=== PATIENT | male | born 1955 | race Caucasian/White ===

== ENCOUNTER 2017-07-28 06:52 | Day surgery (SDC) | payer BC, OTHER ==
[~2017-07-28 06:52] MED LIST: Lactated Ringers 1,000 ML IV SCH; Sodium Chloride 0.9% 10 ML Syringe FLUSH PRN
[2017-07-28] MEDS ORDERED: Midazolam 1 MG/ML 2 ML SDV IV ONE (08:15)
[2017-07-28] MEDS ORDERED: Lidocaine 2% 100 MG/5 ML Syringe IVPUSH ONE (08:15)
[2017-07-28] MEDS ORDERED: Propofol 200 MG/20 ML SDV IV ONE (08:15)
--- NOTE | 2017-07-28 08:18 | PCM.HPR ---
H & P Addendum review - H & P Addendum Review Date of Original H & P: 07/09/17 Date Reviewed: 07/28/17 Time Reviewed: 08:00 Patient was Examined: No Changes
--- NOTE | 2017-07-28 08:46 | PCM.OPNOTE ---
- General Post-Op/Procedure Note Date of Surgery/Procedure: 07/28/17 Operative Procedure(s): Colonoscopy with Polypectomy Findings: Sig Tics Cecal polyp Pre Op Diagnosis: Hx Colon Polyps. Tics Post-Op Diagnosis: Same Anesthesia Technique: MAC Primary Surgeon: Michael Magallon Pathology: polyp EBL in mLs: 0 Complications: None Condition: Good
--- NOTE | 2017-07-28 17:49 | OR ---
DATE OF OPERATION: 07/28/2017 SURGEON: Michael Magallon MD PREOPERATIVE DIAGNOSES: 1. History of colon polyps. 2. Diverticulosis. POSTOPERATIVE DIAGNOSES: 1. Cecal polyp. 2. Sigmoid diverticulosis. PROCEDURE PERFORMED: Colonoscopy with polypectomy. ANESTHESIA: IV sedation. DESCRIPTION OF PROCEDURE: The patient was brought to the procedure room, where he was placed on his left side and IV sedation administered. Digital rectal exam was performed, which was normal. The colonoscope was inserted and advanced to the level of the cecum without difficulty. Cecal position was confirmed by identifying the appendiceal lumen and ileocecal valve. Prep was good and surfaces were well visualized. In the cecum, was a 6 mm sessile polyp, removed with the hot biopsy forceps. The remaining ascending, transverse, and descending colon were normal. The sigmoid colon had multiple diverticula present. Rectum was normal and retroflexion was normal. Air was removed and the scope withdrawn. The patient tolerated the procedure well and returned to recovery in stable condition. The patient will be contacted with the pathology report when it returns. If the polyp is adenomatous, he should consider repeat colonoscopy again in 3 years. If the polyp is hyperplastic, he can wait 5 years until his next colon screening or until his next colonoscopy. /[id number] TRUONG/STEPHANIE
== END 2017-07-28 10:05 | disposition home or self-care (01) ==
LOC: FB.SDS 06:52
PROVIDERS: ATTEND Surgery
DX: Z12.11 Encounter for screening for malignant neoplasm of colon (principal); K57.30 Diverticulosis of large intestine without perforation or abscess without bleeding; F41.1 Generalized anxiety disorder; F33.2 Major depressive disorder, recurrent severe without psychotic features; E78.2 Mixed hyperlipidemia; J30.2 Other seasonal allergic rhinitis; Z86.010 Personal history of colon polyps; Z79.899 Other long term (current) drug therapy; Z72.0 Tobacco use
CPT/HCPCS: 45384; 88305; J2250; J2704; J7120

== ENCOUNTER → 2019-05-26 | Outpatient (CLI) | payer MEDICARE, BC | LOC: FB.MH 08:00 | PROVIDERS: ATTEND Psychiatry & Neurology Psychiatry | DX: F33.9 Major depressive disorder, recurrent, unspecified (principal); F41.1 Generalized anxiety disorder | CPT/HCPCS: 99213 ==

== ENCOUNTER 2021-08-28 06:48 | Day surgery (SDC) | payer MEDICARE, BC ==
[~2021-08-28 06:48] MED LIST changes: -Lactated Ringers 1,000 ML IV SCH
[2021-08-28] MEDS ORDERED: Ketamine 500 mg/10 ML MDV IV ONE (06:49)
[2021-08-28] MEDS ORDERED: Propofol 200 MG/20 ML SDV IV ONE (06:49)
[2021-08-28] MEDS: Lactated Ringers 1,000 ML IV SCH (07:55)
[2021-08-28] MEDS ORDERED: PAROXETINE HCL 37.5 MG PO SCH (09:00)
[2021-08-28] MEDS ORDERED: amLODIPine 2.5 MG Tab PO SCH (09:00)
[2021-08-28] MEDS ORDERED: Non-Formulary Medication 1 Each (Rosuvastatin [Crestor] 5 MG Tablet) PO SCH (09:00)
[2021-08-28 10:21] VITALS: BP 117/75; PULSE 66
== END 2021-08-28 09:55 | disposition home or self-care (01) ==
LOC: FB.SDS 06:48
PROVIDERS: ATTEND Surgery
DX: Z12.11 Encounter for screening for malignant neoplasm of colon (principal); K57.30 Diverticulosis of large intestine without perforation or abscess without bleeding; E78.00 Pure hypercholesterolemia, unspecified; I10 Essential (primary) hypertension; E66.9 Obesity, unspecified; F17.200 Nicotine dependence, unspecified, uncomplicated; F41.9 Anxiety disorder, unspecified; F32.A Depression, unspecified; Z86.010 Personal history of colon polyps; Z98.890 Other specified postprocedural states; Z79.899 Other long term (current) drug therapy; Z68.31 Body mass index [BMI] 31.0-31.9, adult
CPT/HCPCS: 00811-QZ; J2704; J3490; J7120